=== PATIENT | male | born 1995 | race Caucasian/White ===

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

== ENCOUNTER 2017-04-26 11:52 | Emergency (ER) | payer SELFPAY ==
[2017-04-26 13:42] VITALS: BP 142/84
== END 2017-04-26 13:43 | disposition home or self-care (01) ==
LOC: ED 11:52
DX: S31.154A Open bite of abdominal wall, left lower quadrant without penetration into peritoneal cavity, initial encounter (principal); W54.0XXA Bitten by dog, initial encounter; Y93.51 Activity, roller skating (inline) and skateboarding; Y99.8 Other external cause status; Y92.488 Other paved roadways as the place of occurrence of the external cause
CPT/HCPCS: 90715

== ENCOUNTER 2018-11-10 07:57 | Emergency (ER) | payer OTHER ==
[~2018-11-10] VITALS: Ht 180.3 cm; Wt 111.1 kg
[2018-11-10 08:01] VITALS: Ht 180.3 cm; Wt 111.1 kg
[2018-11-10 08:47] VITALS: BP 127/71
== END 2018-11-10 08:47 | disposition home or self-care (01) ==
LOC: ED 07:57
DX: J02.9 Acute pharyngitis, unspecified (principal); I89.0 Lymphedema, not elsewhere classified
CPT/HCPCS: J0561

== ENCOUNTER 2020-03-10 01:13 | Emergency (ER) | payer SELFPAY ==
[~2020-03-10] VITALS: Ht 180.3 cm; Wt 127.0 kg
[2020-03-10 01:18] VITALS: Ht 180.3 cm; Wt 127.0 kg
[2020-03-10 03:19] VITALS: BP 102/50
== END 2020-03-10 03:19 | disposition home or self-care (01) ==
LOC: ED 01:13
DX: T40.7X5A Adverse effect of cannabis (derivatives), initial encounter (principal); F41.9 Anxiety disorder, unspecified; R00.2 Palpitations; Y92.89 Other specified places as the place of occurrence of the external cause
CPT/HCPCS: J7030